=== PATIENT | female | born 1955 | race Caucasian/White ===

== ENCOUNTER → 2016-08-18 | Outpatient (CLI) | payer BC, OTHER ==
[~2016-08-18] MED LIST: BAYER ASPIRIN325 M1 PO; FISH OIL 1,0001 CAP PO; FLUOXETINE HCL20 M1 PO; LIPITOR40 MG PO; LORTAB 7.5-5001 TAB PO; NATURAL VITA400 UNI2 PO; PERCOCET5/325 PO; VITAMIN C500 M1 PO; VITAMIN E400 UNI2 PO
--- NOTE | ~2016-08-18 | TH ---
Unit #: [id number] #: [id number] Patient: NABIL ARNOLD [id number] [address] [address] [id number] MR#: [id number] NAME: NABIL ARNOLD : 1955 SEX: F STUDY DATE/TIME: 08/18/2016 UNIT: [facility] ROOM: STUDY DESCRIPTION: Attending Physician: Josias Corona M.D. Referring Physician: Josias Corona M.D. Primary Care Physician: Nola Hilliard M.D. CARDIOLOGY REPORT EXAM Stress nuclear and ECG combined. INDICATION Chest pain, dyslipidemia, family history of coronary artery disease. SUMMARY The patient exercised on a Dylan protocol to maximal effort. Patient stopped because of chest tightness and shortness of breath. Patient completed 7 minutes of exercise. The rest and the stress ECG showed no diagnostic ST shifts. There were no significant dysrhythmias. Particular attention was paid to when the patient experienced chest tightness, and there were no ST changes. Patient's heart rate increased from 71 to 133 (84%) and blood pressure increased from 138/88 to 161/97. Technetium 99 Cardiolite 11.24 and 35.1 mCi was injected at rest and stress, respectively. Appropriate views were obtained. FINDINGS Left ventricle size is small. There is intestinal artifact at rest but less with stress. Otherwise, perfusion is normal and equivalent between rest and stress. End-diastolic volume is 46 mL and ejection fraction greater than 65% on gated perfusion wall motion analysis. There are no wall motion abnormalities. The summed stress score is 1 and summed difference score is 1. Planar images showed no significant patient motion either at rest or stress. IMPRESSION 1. Normal study with small ventricle. 2. Normal stress ECG. 3. Low-normal exercise capacity based on the patient's age. 4. Normal heart rate and blood pressure responses. 5. Chest tightness noted which has been related in situations like this to the very small ventricle. 1. Dictated by... Wayne Naranjo M.D. Jacinto TD: 08/18/2016 14:36 JOB #: [id number] Unit #: [id number] #: [id number] Patient: NABIL ARNOLD CARDIOLOGY REPORT Page 1 of 1 X Wayne Naranjo MD CARDIOLOGY REPORT
== END | disposition home or self-care (01) ==
LOC: CECH 07:48
DX: R07.9 Chest pain, unspecified (principal)
CPT/HCPCS: 78452; 93017; 93306; A9500